=== PATIENT | female | born 1970 | race Two or more races ===

== ENCOUNTER → 2022-09-24 | Day surgery (SDC) | payer OTHER ==
[2022-09-20 13:45] VITALS: BMI 22.3
[~2022-09-24] MED LIST: ACETAMINOPHEN 500 MG TABLET (FP) PO PRN; BUPIVACAINE HCL/PF 0.75% 10 ML VIAL ONE; LIDOCAINE HCL/PF 1% SDV 5ML VIAL ONE
== END | disposition home or self-care (01) ==
LOC: JASU-SURG 04:14
PROVIDERS: ATTEND Pain Medicine Pain Medicine
DX: Z53.8 Procedure and treatment not carried out for other reasons (principal)

== ENCOUNTER 2022-10-11 04:37 | Day surgery (SDC) | payer OTHER ==
[2022-10-10 17:14] VITALS: BMI 22.3
[~2022-10-11 04:37] MED LIST changes: -ACETAMINOPHEN 500 MG TABLET (FP) PO PRN; +BUPIVACAINE HCL/PF 0.75% 10 ML VIAL NR ONE; -BUPIVACAINE HCL/PF 0.75% 10 ML VIAL ONE; +LIDOCAINE HCL 1% PRESERVATIVE FREE - 30ML VIAL IJ ONE; -LIDOCAINE HCL/PF 1% SDV 5ML VIAL ONE
[2022-10-11] MEDS ORDERED: LIDOCAINE HCL/PF 1% SDV 5ML VIAL ONE (07:46)
[2022-10-11] MEDS ORDERED: BUPIVACAINE HCL/PF 0.75% 10 ML VIAL ONE (07:46)
[2022-10-11] MEDS ORDERED: ACETAMINOPHEN 500 MG TABLET (FP) PO PRN (08:56)
[2022-10-11] MEDS ORDERED: BUPIVACAINE HCL/PF 0.75% 10 ML VIAL NR ONE (13:03)
[2022-10-11] MEDS ORDERED: LIDOCAINE HCL 1% PRESERVATIVE FREE - 30ML VIAL IJ ONE (13:03)
[2022-10-11 13:32] VITALS: PULSE 70; RESP 20
[2022-10-11 14:46] VITALS: BP 128/68; TEMP 97
== END 2022-10-11 14:00 | disposition home or self-care (01) ==
LOC: JASU-SURG 04:37
PROVIDERS: ATTEND Pain Medicine Pain Medicine
PROC: 3E0T33Z Introduction of Anti-inflammatory into Peripheral Nerves and Plexi, Percutaneous Approach (ICD-10-PCS; 2022-10-11)
PROC: 3E0T3BZ Introduction of Anesthetic Agent into Peripheral Nerves and Plexi, Percutaneous Approach (ICD-10-PCS; principal; 2022-10-11 14:00)
DX: M47.816 Spondylosis without myelopathy or radiculopathy, lumbar region (principal)
CPT/HCPCS: 76000-TC-FY